=== PATIENT | female | born 1965 | race Asian ===

== ENCOUNTER → 2017-01-17 | Outpatient (CLI) | payer OTHER | END | disposition home or self-care (01) | LOC: CFH 12:54 | PROVIDERS: ATTEND Family Medicine | DX: Z12.31 Encounter for screening mammogram for malignant neoplasm of breast (principal) | CPT/HCPCS: G0202 ==

== ENCOUNTER 2017-02-18 17:23 | Inpatient (IN) | payer OTHER ==
[~2017-02-18] VITALS: Ht 149.9 cm; Wt 54.7 kg
[2017-02-18] MEDS ORDERED: SODIUM CHLORIDE FLUSH 10ML SYR IVF ONE (18:00)
[2017-02-18] MEDS ORDERED: SODIUM CHLORIDE 0.9% 1,000ML IVBOLUS ONE (18:00)
[2017-02-18 18:28] LABS: BLOOD UREA NITROGEN 8 mg/dL (7-18)
[2017-02-18 18:29] LABS: ASPARTATE AMINO TRANSFERASE 23 U/L (15-37)
[2017-02-18] MEDS ORDERED: CYAN200014 PO (18:29)
[2017-02-18] MEDS ORDERED: BIOT25004 PO (18:29)
[2017-02-18] MEDS ORDERED: CHOL2000 PO (18:29)
[2017-02-18 18:57] LABS: DIFF TOTAL CELLS COUNTED 100 CELL DIFF
[2017-02-18 18:59] LABS: ANISOCYTOSIS 2+; HYPOCHROMIA 2+; MICROCYTOSIS 2+
[2017-02-18 19:00] LABS: OVALOCYTES 1+; POLYCHROMASIA 1+
[2017-02-18 19:02] LABS: VERIFY COUNTS? YES
[2017-02-18] MEDS ORDERED: HYDROcodone/APAP 5/325 TABLET PO PRN (20:30)
[2017-02-18] MEDS ORDERED: ACETAMINOPHEN 325 MG TABLET PO PRN (20:30)
[2017-02-18] MEDS ORDERED: ENALAPRILAT 1.25 MG/ML, 2ML IVPush PRN (20:30)
[2017-02-18] MEDS ORDERED: ONDANSETRON 2MG/ML, 2ML IVPush PRN (20:30)
[2017-02-18] MEDS ORDERED: TEMAZEPAM 15 MG CAPSULE PO PRN (20:30)
[2017-02-18 20:40] VITALS: BP 124/75
[2017-02-18] MEDS ORDERED: ACETAMINOPHEN 325 MG TABLET PO ONE (21:00)
[2017-02-18] MEDS ORDERED: DIPHENHYDRAMINE 25 MG CAPSULE PO ONE (21:00)
[2017-02-18 21:29] VITALS: BP 110/68
[2017-02-18] MEDS: PANTOPRAZOLE 40 MG IV IVPush SCH (21:36)
[2017-02-18 21:50] VITALS: BP 113/68
[2017-02-18 22:06] VITALS: BP 98/60
[2017-02-18 23:37] VITALS: BP 110/69
[2017-02-18 23:46] VITALS: BP 110/69
[2017-02-19 00:01] VITALS: BP 113/63
[2017-02-19 00:18] VITALS: BP 108/63
[2017-02-19 02:04] VITALS: BP 104/63
[2017-02-19 02:05] VITALS: BP 104/63
[2017-02-19 04:20] LABS: BLOOD UREA NITROGEN 6 mg/dL (7-18)
[2017-02-19 06:52] VITALS: BP 116/71
[2017-02-19] MEDS: PANTOPRAZOLE 40 MG IV IVPush SCH (07:59)
[2017-02-19] MEDS ORDERED: HYDROCORTISONE CRM 2.5%, 20GM TP SCH (11:55)
[2017-02-19] MEDS ORDERED: PSYLLIUM PACKET PO SCH (12:00)
[2017-02-19 12:40] VITALS: BP 120/73
[2017-02-19] MEDS ORDERED: HYDR25SU3 PR (13:02)
[2017-02-19] MEDS ORDERED: HYDR453.3 TP (13:02)
[2017-02-19] MEDS ORDERED: HYDROCORTISONE 25 MG SUPP PR SCH (21:00)
[2017-03-05] MEDS ORDERED: HYDROCORTISONE CRM 2.5%, 20GM TP PRN (09:00)
== END 2017-02-19 15:30 | disposition home or self-care (01) | DRG 378 ==
LOC: ED 20:02 → EDIP 20:05 → 3NW 20:35 → DCLOUNGE 02-19 15:05
PROVIDERS: ADMIT Internal Medicine; ATTEND Internal Medicine
PROC: 30233N1 Transfusion of Nonautologous Red Blood Cells into Peripheral Vein, Percutaneous Approach (ICD-10-PCS; principal; 2017-02-18)
DX: K92.1 Melena (principal); D62 Acute posthemorrhagic anemia; K64.8 Other hemorrhoids; K64.4 Residual hemorrhoidal skin tags; Z79.899 Other long term (current) drug therapy
CPT/HCPCS: 36415; 80048; 80053; 82728; 83540; 83550; 83735; 84100; 85025; 85610; 86850; 86900; 86923; 96360; 96361; C9113; J7030; P9016; Q0163

== ENCOUNTER 2017-07-07 19:18 | Emergency (ER) | payer OTHER ==
[~2017-07-07] VITALS: Ht 162.6 cm; Wt 72.9 kg
[~2017-07-07 19:18] MED LIST: BIOT25005 PO; CHOL2000 PO; CYAN200014 PO; HYDR25SU3 PR; HYDR453.3 TP
[2017-07-07 19:56] LABS: HEMATOCRIT 37.8 % (34.6-47.8); HEMOGLOBIN 12.7 g/dL (11.7-16.4); WHITE BLOOD COUNT 6.8 x10^3/uL (3.4-10)
[2017-07-07] MEDS ORDERED: SODIUM CHLORIDE FLUSH 10ML SYR IVF ONE (20:00)
[2017-07-07] MEDS ORDERED: SODIUM CHLORIDE 0.9% 1,000ML IVBOLUS ONE (20:00)
[2017-07-07 20:10] LABS: ASPARTATE AMINO TRANSFERASE 16 U/L (15-37); BLOOD UREA NITROGEN 13 mg/dL (7-18)
[2017-07-07 20:13] LABS: IS PT STATUS REG ER OR PRE ER? YES
[2017-07-07 20:47] VITALS: BP 112/86
== END 2017-07-07 22:03 | disposition home or self-care (01) ==
LOC: ED 22:00
DX: R55 Syncope and collapse (principal); D64.9 Anemia, unspecified
CPT/HCPCS: 36415; 80053; 81001; 84484; 85025; 87086; 93005; 96360; 99285; J7030

== ENCOUNTER → 2017-08-27 | Outpatient (CLI) | payer OTHER | END | disposition home or self-care (01) | LOC: RAD 10:57 | PROVIDERS: ATTEND Specialist | DX: R55 Syncope and collapse (principal) | CPT/HCPCS: 70553; 95819 ==

== ENCOUNTER → 2017-08-27 | Outpatient (CLI) | payer OTHER | END | disposition home or self-care (01) | LOC: CARD 10:54 | PROVIDERS: ATTEND Specialist | DX: R94.01 Abnormal electroencephalogram [EEG] (principal); R55 Syncope and collapse | CPT/HCPCS: 95816 ==

== ENCOUNTER → 2018-06-04 | Outpatient (CLI) | payer OTHER | END | disposition home or self-care (01) | LOC: CFH 15:18 | PROVIDERS: ATTEND Family Medicine | DX: Z12.31 Encounter for screening mammogram for malignant neoplasm of breast (principal) | CPT/HCPCS: 77063; 77067 ==

== ENCOUNTER → 2018-06-30 | Outpatient (CLI) | payer OTHER | END | disposition home or self-care (01) | LOC: CFH 14:42 | PROVIDERS: ATTEND Family Medicine | DX: Z01.419 Encounter for gynecological examination (general) (routine) without abnormal findings (principal); Z13.820 Encounter for screening for osteoporosis; M81.0 Age-related osteoporosis without current pathological fracture | CPT/HCPCS: 77080 ==

== ENCOUNTER → 2019-07-16 | Outpatient (CLI) | payer OTHER | END | disposition home or self-care (01) | LOC: CFH 15:47 | PROVIDERS: ATTEND Family Medicine | DX: Z12.31 Encounter for screening mammogram for malignant neoplasm of breast (principal) | CPT/HCPCS: 77063; 77067 ==

== ENCOUNTER → 2020-12-06 | Outpatient (CLI) | payer OTHER | END | disposition home or self-care (01) | LOC: CFH 08:17 | PROVIDERS: ATTEND Family Medicine | DX: Z12.31 Encounter for screening mammogram for malignant neoplasm of breast (principal) | CPT/HCPCS: 76641; 77063; 77067 ==